=== PATIENT | female | born 1995 | race Hispanic/Latino ===

== ENCOUNTER 2021-12-07 08:42 | Emergency (ER) | payer OTHER ==
[2021-12-07] MEDS ORDERED: Ibuprofen 200 MG TAB ONE (09:56)
== END 2021-12-07 10:35 | disposition home or self-care (01) ==
LOC: CSHERS 08:42
DX: S83.91XA Sprain of unspecified site of right knee, initial encounter (principal); S40.012A Contusion of left shoulder, initial encounter; S70.01XA Contusion of right hip, initial encounter; V43.52XA Car driver injured in collision with other type car in traffic accident, initial encounter
CPT/HCPCS: 71045; 72100; 72125